=== PATIENT | female | born 1945 | race Caucasian/White ===

== ENCOUNTER → 2016-12-24 | Outpatient (REF) | LOC: ZLAB.WCH 15:51 | DX: Z01.89 Encounter for other specified special examinations (principal) ==

== ENCOUNTER → 2016-12-25 | Outpatient (REF) | LOC: ZLAB.WCH 19:43 | DX: Z01.89 Encounter for other specified special examinations (principal) ==

== ENCOUNTER → 2016-12-28 | Outpatient (REF) | LOC: ZLAB.WCH 11:26 | DX: Z01.89 Encounter for other specified special examinations (principal) ==

== ENCOUNTER → 2017-01-10 | Outpatient (REF) | LOC: ZLAB.WCH 10:37 | DX: Z01.89 Encounter for other specified special examinations (principal) ==

== ENCOUNTER 2017-03-23 14:45 | Outpatient (RCR) | payer MEDICARE, BC | END 2017-04-14 | disposition home or self-care (01) | LOC: MKS.ESL.PT | DX: I89.0 Lymphedema, not elsewhere classified (principal); Z85.3 Personal history of malignant neoplasm of breast | CPT/HCPCS: G8990-GP; G8991-GP ==

== ENCOUNTER → 2017-09-09 | Outpatient (REF) ==
[2017-09-09 19:16] LABS: C-REACTIVE PROTEIN < 0.5 mg/dL (0.0-0.9)
== END ==
LOC: ZLAB.WCH 18:46
PROVIDERS: Nurse Practitioner Family
DX: Z01.89 Encounter for other specified special examinations (principal)

== ENCOUNTER → 2017-11-28 | Outpatient (REF) | LOC: ZLAB.WCH 18:23 | DX: Z01.89 Encounter for other specified special examinations (principal) ==

== ENCOUNTER → 2017-12-13 | Outpatient (CLI) | payer MEDICARE, BC | LOC: MC.RAD 07:53 | DX: N63.10 Unspecified lump in the right breast, unspecified quadrant (principal); C50.919 Malignant neoplasm of unspecified site of unspecified female breast ==

== ENCOUNTER → 2017-12-23 | Outpatient (CLI) | payer MEDICARE, BC | LOC: COL.RAD 09:02 | DX: M79.89 Other specified soft tissue disorders (principal) ==

== ENCOUNTER 2018-01-17 10:18 | Day surgery (SDC) | payer MEDICARE, BC ==
[2018-01-17] VITALS (10 sets, daily range): BP systolic 110–148; BP diastolic 52–90; PULSE 108–119; TEMP 97.8–98.9
[~2018-01-17] VITALS: Ht 154.9 cm; Wt 67.3 kg
[2018-01-17] MEDS ORDERED: PRINZIDE 12.5 M1 TAB PO (10:57)
[2018-01-17] MEDS ORDERED: MIRAPEX0.25 MG PO (10:57)
[2018-01-17] MEDS ORDERED: SYNTHROID0.1 MG/TAB PO (10:57)
[2018-01-17] MEDS ORDERED: XALATAN EYE DROPS OU (10:59)
[2018-01-18 04:15] VITALS: BP 94/52; PULSE 98; TEMP 97.5
== END 2018-01-18 10:55 | disposition home or self-care (01) ==
LOC: SDCO 10:18 → OB 16:00 → SDCO 01-18 10:55
DX: C50.311 Malignant neoplasm of lower-inner quadrant of right female breast (principal); Z17.0 Estrogen receptor positive status [ER+]; I97.2 Postmastectomy lymphedema syndrome; I10 Essential (primary) hypertension; Z92.21 Personal history of antineoplastic chemotherapy; Z92.3 Personal history of irradiation; Z85.3 Personal history of malignant neoplasm of breast; Z88.2 Allergy status to sulfonamides; E07.9 Disorder of thyroid, unspecified; Z86.718 Personal history of other venous thrombosis and embolism; G25.81 Restless legs syndrome
CPT/HCPCS: OP; J0690; J1100; J1885; J2250; J2405; J2704; J3010; J7120

== ENCOUNTER 2018-05-25 14:45 | Outpatient (RCR) | payer MEDICARE, BC ==
[~2018-05-25 14:45] MED LIST: MIRAPEX0.25 MG PO; PRINZIDE 12.5 M1 TAB PO; SYNTHROID0.1 MG/TAB PO; XALATAN EYE DROPS OU
== END 2018-06-04 | disposition home or self-care (01) ==
LOC: WSPT
DX: I97.2 Postmastectomy lymphedema syndrome (principal); Z85.3 Personal history of malignant neoplasm of breast; Z90.11 Acquired absence of right breast and nipple; Z92.21 Personal history of antineoplastic chemotherapy; Z92.3 Personal history of irradiation
CPT/HCPCS: G8979-GP; G8987-GP; G8988-GP

== ENCOUNTER → 2018-05-29 | Outpatient (CLI) | payer MEDICARE, BC | LOC: COL.RAD 13:59 | DX: C50.311 Malignant neoplasm of lower-inner quadrant of right female breast (principal); J47.9 Bronchiectasis, uncomplicated; J84.10 Pulmonary fibrosis, unspecified; R00.0 Tachycardia, unspecified; Z90.11 Acquired absence of right breast and nipple; Z90.49 Acquired absence of other specified parts of digestive tract; Z95.828 Presence of other vascular implants and grafts; R59.0 Localized enlarged lymph nodes | CPT/HCPCS: Q9967 ==

== ENCOUNTER → 2018-08-01 | Outpatient (REF) | LOC: ZLAB.WCH 16:09 | DX: Z01.89 Encounter for other specified special examinations (principal) ==

== ENCOUNTER 2018-08-31 10:00 | Outpatient (RCR) | payer MEDICARE, BC | END 2018-10-05 09:22 | disposition home or self-care (01) | LOC: WSPT 10:00 | DX: I97.2 Postmastectomy lymphedema syndrome (principal); Z85.3 Personal history of malignant neoplasm of breast; Z90.11 Acquired absence of right breast and nipple; Z92.21 Personal history of antineoplastic chemotherapy; Z98.890 Other specified postprocedural states | CPT/HCPCS: G8988-GP; G8989-GP ==

== ENCOUNTER → 2019-02-14 | Outpatient (RCR) | payer MEDICARE, BC | END | disposition home or self-care (01) | LOC: WSPT | DX: I89.0 Lymphedema, not elsewhere classified (principal); Z85.3 Personal history of malignant neoplasm of breast; Z79.811 Long term (current) use of aromatase inhibitors ==

== ENCOUNTER 2019-03-22 10:00 | Outpatient (RCR) | payer MEDICARE, BC | END 2019-04-06 10:41 | disposition home or self-care (01) | LOC: WSPT 10:00 | DX: I89.0 Lymphedema, not elsewhere classified (principal) ==

== ENCOUNTER 2019-09-13 10:30 | Outpatient (RCR) | payer MEDICARE, BC | END 2019-09-18 | disposition still patient (30) | LOC: WSPT | DX: C50.311 Malignant neoplasm of lower-inner quadrant of right female breast (principal); I89.0 Lymphedema, not elsewhere classified ==

== ENCOUNTER 2019-12-21 13:45 | Outpatient (RCR) | payer MEDICARE, BC | END 2019-12-25 | disposition home or self-care (01) | LOC: WSPT | DX: C50.311 Malignant neoplasm of lower-inner quadrant of right female breast (principal); I89.0 Lymphedema, not elsewhere classified ==

== ENCOUNTER → 2020-04-16 | Outpatient (CLI) | payer MEDICARE, BC | LOC: COL.CARD 10:23 | DX: R55 Syncope and collapse (principal); W19.XXXA Unspecified fall, initial encounter; C50.919 Malignant neoplasm of unspecified site of unspecified female breast ==